=== PATIENT | male | born 1975 | race Caucasian/White ===

== ENCOUNTER 2017-11-26 10:26 | Emergency (ER) | payer SELFPAY, OTHER, MEDICAID ==
[2017-11-26] MEDS: diphenhydrAMINE INJ 50MG/ML VIAL (J1200) IM (12:00)
[2017-11-26] MEDS: HALOPERIDOL 5 MG/ML VIAL (J1630) IM (12:00)
[2017-11-26] MEDS: LORazepam 2 MG/ML VIAL (J2060) IM (12:00)
[2017-11-26 12:46] LABS: HEMATOCRIT 46.9 % (42.0-52.0); HEMOGLOBIN 16.3 g/dl (13.5-17.5); MEAN CORPUSCULAR HEMOGLOBIN 32.1 pg (27.0-33.0); MEAN CORPUSCULAR HGB CONC 34.8 g/dl (32.0-36.5); MEAN CORPUSCULAR VOLUME 92.5 fl (80.0-96.0); PLATELET COUNT, AUTOMATED 345 10^3/uL (150-450); RED BLOOD COUNT 5.07 10^6/uL (4.30-6.10); RED CELL DISTRIBUTION WIDTH 12.2 % (11.5-14.5); WHITE BLOOD COUNT 10.8 10^3/uL (4.0-10.0)
[2017-11-26 13:13] LABS: AMPHETAMINES LEVEL URINE POSITIVE (NEGATIVE); BARBITURATES URINE NEGATIVE (NEGATIVE); BENZODIAZEPINES URINE POSITIVE (NEGATIVE); CANNABINOIDS URINE POSITIVE (NEGATIVE); COCAINE METABOLITE URINE NEGATIVE (NEGATIVE); METHADONE URINE NEGATIVE (NEGATIVE); OPIATES URINE NEGATIVE (NEGATIVE); PHENCYCLIDINE URINE NEGATIVE (NEGATIVE)
[2017-11-26 13:20] LABS: ALBUMIN 4.5 GM/DL (3.2-5.2); ALBUMIN/GLOBULIN RATIO 1.25 (1.00-1.93); ALKALINE PHOSPHATASE 98 U/L (45-117); ALT/SGPT 23 U/L (12-78); ANION GAP 4 MEQ/L (8-16); AST/SGOT 20 U/L (7-37); BILIRUBIN,DIRECT 0.2 MG/DL (0.0-0.2); BILIRUBIN,TOTAL 0.5 MG/DL (0.2-1.0); BLOOD UREA NITROGEN 10 MG/DL (7-18); CALCIUM LEVEL 9.2 MG/DL (8.5-10.1); CARBON DIOXIDE LEVEL 26 MEQ/L (21-32); CHLORIDE LEVEL 111 MEQ/L (98-107); CREATININE FOR GFR 1.02 MG/DL (0.70-1.30); ETHYL ALCOHOL (ETHANOL) < 0.003 % (0.000-0.010); GLOMERULAR FILTRATION RATE > 60.0 (>60); GLUCOSE, FASTING 95 MG/DL (70-100); POTASSIUM SERUM 4.7 MEQ/L (3.5-5.1); SALICYLATE LEVEL 5.2 MG/DL (5.0-30.0); SODIUM LEVEL 141 MEQ/L (136-145); TOTAL PROTEIN 8.1 GM/DL (6.4-8.2)
[2017-11-26 13:35] LABS: ACETAMINOPHEN LEVEL < 2.0 UG/ML (10.0-30.0)
== END 2017-11-26 21:05 | disposition home or self-care (01) ==
LOC: M ED 10:26
DX: T42.4X1A Poisoning by benzodiazepines, accidental (unintentional), initial encounter (principal); Y92.9 Unspecified place or not applicable; Y93.9 Activity, unspecified; F41.9 Anxiety disorder, unspecified; F17.200 Nicotine dependence, unspecified, uncomplicated; Z88.6 Allergy status to analgesic agent; Z88.8 Allergy status to other drugs, medicaments and biological substances
CPT/HCPCS: J1200

== ENCOUNTER 2019-01-22 07:26 | Observation (INO) | payer MEDICAID, OTHER ==
[~2019-01-22] VITALS: Ht 177.8 cm; Wt 73.5 kg
[~2019-01-22 07:26] MED LIST: PROAAER10 INH; XANA1TAB2 PO
[2019-01-22] MEDS ORDERED: LORazepam 2 MG/ML VIAL (J2060) IV STA (07:53)
[2019-01-22] MEDS ORDERED: MECLIZINE 25 MG TABLET PO ONE (08:00)
[2019-01-22] MEDS ORDERED: ONDANSETRON 4MG/2ML VIAL (J2405) IV ONE (08:00)
--- NOTE | 2019-01-22 09:03 | REP ---
CT BRAIN WITHOUT CONTRAST: HISTORY: Vertigo. No comparison study. 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 Bone window settings demonstrate an intact calvarium. Visualized paranasal sinuses are clear. There is minimal mucosal thickening in the sphenoid sinus.. No intraorbital abnormality is seen. The lateral and third ventricles are somewhat dilated. Fourth ventricle is normal in size. The peripheral subarachnoid space is only minimally prominent. No vascular calcification is seen. No mass, infarct or hemorrhage is seen. IMPRESSION: Mild ventriculomegaly involving lateral and third ventricles etiology uncertain. Otherwise negative. Electronically Signed by Janak Cisse MD 01/22/2019 10:08 A
--- NOTE | 2019-01-22 11:42 | REP ---
MR angiography the brain without contrast: History: Cerebellar CVA. Technique: 3-D [id number] MR angiography of the brain is acquired in the usual fashion and maximal intensity projection images were generated in rotational format about the vertical and horizontal axes. In addition, source axial T1-weighted images are viewed in cine mode. MR angiographic findings: The distal vertebral arteries are patent and co-dominant. Basilar artery is a little tortuous but widely patent. The posterior cerebral and superior cerebellar vessels are normal and symmetric. The distal internal carotid arteries are unremarkable. Anterior and middle cerebral arteries appear intact. There is no visible m[place]ton aneurysm or arteriovenous malformation. Impression: Unremarkable MR angiography the brain. Electronically Signed by Janak Cisse MD 01/22/2019 11:33 A
--- NOTE | 2019-01-22 11:47 | REP ---
MRI BRAIN WITHOUT CONTRAST: HISTORY: Cerebellar CVA. Ventriculomegaly on today's CT study. TECHNIQUE: Axial and sagittal imaging planes are utilized for T1- and T2-weighted scans. Sequences include spin-echo, fast spin echo, FLAIR, and diffusion weighted sequences. MRI FINDINGS: Craniocervical junction upper cervical cord are normal in appearance. No bony calvarial lesion is appreciated. There is no evidence of intracranial hemorrhage. Diffusion weighted scans show no evidence of restricted diffusion to suggest acute ischemia either in the posterior fossa or supratentorial brain. No extra-axial fluid collection or midline shift is seen. No mass or infarct is apparent. There is again noted to be enlargement of the lateral and third ventricles. The cerebral aqueduct is patent and unremarkable. There are small linear areas of periventricular T2 hyperintensity adjacent to the body of the lateral ventricles bilaterally, left more so than right. No other abnormal white matter finding. IMPRESSION: Ventriculomegaly. Unremarkable cerebral aqueduct. No evidence of acute ischemia. Otherwise negative MRI study of the brain. Electronically Signed by Janak Cisse MD 01/22/2019 02:17 P
[2019-01-22 12:15] LABS: HEMATOCRIT 42.5 % (42.0-52.0); HEMOGLOBIN 14.5 g/dl (13.5-17.5); MEAN CORPUSCULAR HEMOGLOBIN 31.8 pg (27.0-33.0); MEAN CORPUSCULAR HGB CONC 34.1 g/dl (32.0-36.5); MEAN CORPUSCULAR VOLUME 93.2 fl (80.0-96.0); PLATELET COUNT, AUTOMATED 352 10^3/uL (150-450); RED BLOOD COUNT 4.56 10^6/uL (4.30-6.10); WHITE BLOOD COUNT 10.9 10^3/uL (4.0-10.0)
[2019-01-22] MEDS ORDERED: PROMETHAZINE INJ 25 MG/ML VIAL (J2550) IM ONE (12:15)
[2019-01-22 12:23] LABS: BLOOD UREA NITROGEN 15 MG/DL (7-18); CALCIUM LEVEL 8.8 MG/DL (8.5-10.1); CARBON DIOXIDE LEVEL 25 MEQ/L (21-32); CHLORIDE LEVEL 107 MEQ/L (98-107); CREATININE FOR GFR 0.88 MG/DL (0.70-1.30); GLOMERULAR FILTRATION RATE > 60.0 (>60); GLUCOSE, FASTING 136 MG/DL (70-100); POTASSIUM SERUM 3.8 MEQ/L (3.5-5.1); SODIUM LEVEL 139 MEQ/L (136-145)
[2019-01-22] MEDS ORDERED: diazePAM 5 MG TAB PO PRN (15:45)
[2019-01-22] MEDS ORDERED: KCL 20MEQ in NS 1000ML 1,000 ML IV SCH (15:45)
[2019-01-22] MEDS ORDERED: MECLIZINE 25 MG TABLET PO PRN (15:45)
--- NOTE | 2019-01-22 15:59 | HPE ---
DATE OF ADMISSION: 01/22/2019 PRIMARY CARE PROVIDER: None HISTORY: Ru Anderson is a 44-year-old, no significant past medical history besides mild asthma and "hypoglycemia" who presents to the emergency room with retractable vertigo. He was in his usual state of health until this morning when he had abrupt onset of whirling vertigo associated with nausea while he was drinking his morning coffee. He felt like he was going to pass out and he had "tunnel vision". Any kind of head movement caused severe vertigo with associated vomiting. He has no past history of vertigo, but he does have tinnitus which has been going on for the last two weeks. He was recently treated for bilateral otitis media about three months ago. PAST MEDICAL HISTORY: Mild asthma, "hypoglycemia" which he treats by not skipping meals. SOCIAL HISTORY: Smokes. Occasional alcohol use. 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 FAMILY HISTORY: Noncontributory. MEDICATIONS: - albuterol inhaler as needed ALLERGIES: ASPIRIN, CAFFEINE, EPINEPHRINE and PHENACETIN. REVIEW OF SYSTEMS: No discharge from the ears. No blurring of his vision. No diplopia. He is nauseated. He has been vomiting. No diarrhea. No neck stiffness. No focal neurologic deficits. No chest pain or shortness of breath. PHYSICAL EXAMINATION: VITAL SIGNS: Per flow sheet. HEENT: Pupils equal, round and reactive to light. He has nystagmus of the left. TMs are normal. Pharynx benign. NECK: No masses. LUNGS: Clear without murmur. ABDOMEN: Soft, nontender. No masses. No peripheral edema. NEUROLOGICAL: Cranial nerves II through XII to be intact. Coordination: Normal finger to nose test. Normal strength in the arms and legs. LABS: CBC unremarkable. BMP unremarkable. MRI of the brain showed ventriculomegaly. There is no evidence of restricted diffusion to suggest acute ischemia in the posterior fossa or supratentorial brain. Lateral and third ventricles are enlarged, but the cerebral aqueduct is patent and unremarkable. IMPRESSION: Distractible vertigo probably from vestibular neuronitis. PLAN: 1. Patient will be admitted to med-surg bed. I will rehydrate with IV fluids. Give him meclizine and valium. Expect to be stable for discharge tomorrow. 2. Ventriculomegaly. He has a patent aqueduct. There is no acute hydrocephalus. This could be worked up as an outpatient. 3. Mild asthma which is not severe. Smoking cessation discussed.
[2019-01-22 16:50] VITALS: BP 154/82
[2019-01-22 16:51] VITALS: BP 128/60
[2019-01-23] MEDS ORDERED: ENOXAPARIN 40 MG/0.4 ML SYRINGE (J1650) SC SCH (09:00)
== END 2019-01-22 18:22 | disposition left against medical advice (07) ==
LOC: M ED 07:26 → EDBD 07:26 → M ED INP 15:35 → M MSPAV 16:50
PROVIDERS: ADMIT Family Medicine; ATTEND Student in an Organized Health Care Education/Training Program
DX: R42 Dizziness and giddiness (principal); J45.20 Mild intermittent asthma, uncomplicated; Z53.21 Procedure and treatment not carried out due to patient leaving prior to being seen by health care provider; F17.210 Nicotine dependence, cigarettes, uncomplicated; Z88.8 Allergy status to other drugs, medicaments and biological substances
CPT/HCPCS: 70450; 70544; 70551; 80048; 85027; 96372; 96374; 96375; 99285; J2060; J2405